=== PATIENT | male | born 1940 | race Caucasian/White ===

== ENCOUNTER → 2017-01-21 | Outpatient (CLI) | payer MEDICARE ==
[~2017-01-21] MED LIST: ALLO100T30 PO; ALLO100T64 PO; CITA10TA8 PO; ESCI10TA10 PO; HYDR-3240 PO; METH750T87 PO; VITAMIN B PO; [UNRECOGNIZED DRUG - OTHER] PO
== END | disposition home or self-care (01) ==
LOC: RAD 11:11
PROVIDERS: ATTEND Urology
DX: N20.0 Calculus of kidney (principal); N20.1 Calculus of ureter; I87.8 Other specified disorders of veins
CPT/HCPCS: 74000

== ENCOUNTER 2017-01-22 07:32 | Day surgery (SDC) | payer MEDICARE ==
[2017-01-20 14:15] LABS: BLOOD UREA NITROGEN 25 mg/dL (7-18)
[2017-01-20 14:19] LABS: ASPARTATE AMINO TRANSFERASE 24 U/L (15-37)
[2017-01-20 14:40] LABS: ANISOCYTOSIS 2+; HYPOCHROMIA 1+; MICROCYTOSIS 2+; OVALOCYTES 1+; POLYCHROMASIA 1+
[2017-01-20 14:42] LABS: GIANT PLATELETS 1+; TARGET CELLS 1+
[~2017-01-22] VITALS: Ht 188 cm; Wt 90.0 kg
[2017-01-22] MEDS ORDERED: SODIUM CHLORIDE 0.9% 1,000 ML IV SCH (08:06)
[2017-01-22 08:07] VITALS: BP 160/74
[2017-01-22] MEDS ORDERED: MIDAZOLAM 1 MG/ML, 2ML ONE (09:05)
[2017-01-22] MEDS ORDERED: FENTANYL PF 250 MCG/5ML ONE (09:05)
[2017-01-22] MEDS ORDERED: hydrALAzine 20 MG/ML, 1ML IV PRN (10:00)
[2017-01-22] MEDS ORDERED: PROMETHAZINE 25 MG/ML, 1ML IV PRN (10:00)
[2017-01-22] MEDS ORDERED: METOCLOPRAMIDE 5 MG/ML, 2ML IV PRN (10:00)
[2017-01-22] MEDS ORDERED: ACETAMINOPHEN 325 MG TABLET PO PRN (10:00)
[2017-01-22] MEDS ORDERED: LABETALOL 5MG/ML, 20ML IV PRN (10:00)
[2017-01-22] MEDS ORDERED: OXYcodone 5 MG/5 ML ORAL.SOL UDC PO PRN (10:00)
[2017-01-22] MEDS ORDERED: ONDANSETRON 2MG/ML, 2ML IVPush PRN (10:00)
[2017-01-22] MEDS ORDERED: HYDROmorphone 1 MG/ML, 1ML IV PRN (10:00)
[2017-01-22] MEDS ORDERED: MEPERIDINE/PF 25MG/0.5ML IVPush PRN (10:00)
[2017-01-22] MEDS ORDERED: MIDAZOLAM 1 MG/ML, 2ML IV PRN (10:00)
[2017-01-22] MEDS ORDERED: OMNIPAQUE 350 MG/ML, 50 ML BOTTLE IV ONE (10:15)
[2017-01-22] MEDS ORDERED: OMNIPAQUE 350 MG/ML, 50 ML BOTTLE ONE (11:10)
[2017-01-22] MEDS ORDERED: OXYcodone 5 MG/5 ML ORAL.SOL UDC ONE (11:20)
[2017-01-22] MEDS ORDERED: FENTANYL PF 100 MCG/2ML ONE (11:20)
[2017-01-22] MEDS: FENTANYL PF 100 MCG/2ML IV PRN ×2 (11:23→11:30)
[2017-01-22] MEDS ORDERED: OXYcodone/APAP 5/325MG TABLET ONE (14:00)
[2017-01-22] MEDS ORDERED: OXYcodone/APAP 5/325MG TABLET PO PRN (14:00)
[2017-01-22] MEDS ORDERED: ROCURONIUM 10 MG/ML ONE (15:39)
[2017-01-22] MEDS ORDERED: EPHEDRINE 50 MG/ML, 1ML ONE (15:39)
[2017-01-22] MEDS ORDERED: CEFAZOLIN 1,000 MG ONE (15:39)
[2017-01-22] MEDS ORDERED: DEXAMETHASONE 4 MG/ML, 1ML ONE (15:39)
[2017-01-22] MEDS ORDERED: PROPOFOL 10 MG/ML, 20ML ONE (15:39)
[2017-01-22] MEDS ORDERED: ONDANSETRON 2MG/ML, 2ML ONE (15:39)
[2017-01-22] MEDS ORDERED: SUCCINYLCHOLINE 20 MG/ML, 10ML ONE (15:39)
[2017-01-22] MEDS ORDERED: MORPHINE SULFATE 4 MG/ML, 1ML ONE (15:46)
[2017-01-22] MEDS ORDERED: morphine SULFATE 10 MG/ML, 1ML IVPush PRN (16:00)
== END 2017-01-22 17:20 ==
LOC: OUT 07:32
PROVIDERS: ATTEND Urology
DX: N13.2 Hydronephrosis with renal and ureteral calculous obstruction (principal); Z85.038 Personal history of other malignant neoplasm of large intestine; Z72.89 Other problems related to lifestyle; Z79.01 Long term (current) use of anticoagulants
CPT/HCPCS: 36415; 52356; 74420; 80053; 81003; 85025; 85610; 85730; 87086; 93005; C1758; C2617; J0330; J0690; J1100; J2250; J2405; J2704; J3010; J7030; Q9967

== ENCOUNTER 2018-12-15 12:27 | Day surgery (SDC) | payer MEDICARE ==
[~2018-12-15] VITALS: Ht 188 cm; Wt 90.8 kg
[~2018-12-15 12:27] MED LIST changes: +HYDROmorphone 1 MG/ML, 1ML IV PRN; +LABETALOL 5MG/ML, 20ML IV PRN; +MEPERIDINE/PF 25MG/0.5ML IVPush PRN; +MIDAZOLAM 1 MG/ML, 2ML IV PRN; +ONDANSETRON 2MG/ML, 2ML IVPush PRN; +OXYcodone 5 MG/5 ML ORAL.SOL UDC PO PRN; +PLEASE ENTER HEIGHT AND WEIGHT MC SCH
[2018-12-15] MEDS ORDERED: LACTATED RINGERS 1,000 ML IV SCH (13:11)
[2018-12-15 13:33] VITALS: BP 147/72
[2018-12-15] MEDS ORDERED: SUCCINYLCHOLINE 20 MG/ML, 10ML ONE (13:38)
[2018-12-15] MEDS ORDERED: PROPOFOL 10 MG/ML, 20ML ONE (13:38)
[2018-12-15] MEDS ORDERED: FENTANYL PF 100 MCG/2ML ONE (14:34)
[2018-12-15] MEDS ORDERED: OXYcodone 5 MG/5 ML ORAL.SOL UDC ONE (14:35)
[2018-12-15] MEDS: FENTANYL PF 100 MCG/2ML IV PRN ×2 (14:38→14:48)
== END 2018-12-15 16:24 | disposition home or self-care (01) ==
LOC: OUT 12:27
PROVIDERS: ATTEND Internal Medicine
DX: C16.9 Malignant neoplasm of stomach, unspecified (principal); K44.9 Diaphragmatic hernia without obstruction or gangrene; R59.1 Generalized enlarged lymph nodes; M10.9 Gout, unspecified; D45 Polycythemia vera; N18.9 Chronic kidney disease, unspecified; Z86.73 Personal history of transient ischemic attack (TIA), and cerebral infarction without residual deficits; Z85.038 Personal history of other malignant neoplasm of large intestine; Z98.890 Other specified postprocedural states; Z90.49 Acquired absence of other specified parts of digestive tract
CPT/HCPCS: 43259; 93005; J0330; J2704; J3010; J7120